=== PATIENT | female | born 1980 | race Caucasian/White ===

== ENCOUNTER 2022-06-18 10:09 | Outpatient (CLI) | payer SELFPAY ==
[2022-06-18 12:07] LABS: Basophils Percent Auto 0.4 % (0.2-1.2); Eosinophils Absolute Auto 0.1 K/mm3 (0-0.3); Eosinophils Percent Auto 1.2 % (0-4.4); Hematocrit 29.5 % (37.0-47.0); Hemoglobin 7.4 g/dL (12.0-15.0); Immature Granulocyte Absolute 0.04 K/mm3 (0.00-0.031); Immature Granulocyte Percent A 0.4 % (0-0.5); Lymphocytes Absolute Auto 1.92 K/mm3 (0.9-3.2); Lymphocytes Percent Auto 21.5 % (18.3-44.2); Mean Corpuscular HGB Conc 25.1 g/dl (32-36); Mean Corpuscular Hemoglobin 17.9 pg (26-34); Mean Corpuscular Volume 71.3 fl (80-100); Mean Platelet Volume 10.5 fl (7.4-10.4); Monocytes Absolute Auto 0.4 K/mm3 (0.1-0.6); Monocytes Percent Auto 4.8 % (2.6-8.5); Neutrophils Absolute Auto 6.4 K/mm3 (1.3-6.7); Neutrophils Percent Auto 71.7 % (45.5-73.1); Platelet Count Result 388 k/mm3 (150-375); Red Blood Count 4.14 M/mm3 (4.2-5.4); Red Cell Distribution Width 21.1 % (11.5-14.5); White Blood Count 8.9 K/mm3 (4.5-10.0)
[2022-06-18 12:20] LABS: Iron 15 ug/dL (37-170)
[2022-06-18 12:30] LABS: Percent Iron Saturation 3 % (20-50)
[2022-06-18 12:33] LABS: Anisocytosis 1+ (NORMAL); Hypochromasia 1+ (NORMAL); Poikilocytosis 1+ (NORMAL)
[2022-06-18 12:58] LABS: Ferritin 3.46 ng/mL (6.24-137)
== END 2022-06-18 10:10 | disposition home or self-care (01) ==
LOC: ANHGOSHLAB 10:10
PROVIDERS: PCP Emergency Medicine; Visit Provider Emergency Medicine
DX: D64.9 Anemia, unspecified (principal)
CPT/HCPCS: 36415; 82728; 83540; 83550; 84443; 85025

== ENCOUNTER 2022-06-21 08:18 | Outpatient (NON) | payer SELFPAY ==
[2022-06-21 20:47] LABS: IFOB Positive Control Positive; Immunochemical Fecal Occult Bl Negative (N)
== END 2022-06-21 08:19 | disposition home or self-care (01) ==
LOC: ANHGOSHLAB 08:19
PROVIDERS: PCP Emergency Medicine; Visit Provider Emergency Medicine
DX: D64.9 Anemia, unspecified (principal)
CPT/HCPCS: 82274

== ENCOUNTER → 2022-06-28 12:46 | Outpatient (CLI) | payer SELFPAY ==
--- NOTE | ~2022-06-28 | US_ITS ---
EXAMINATION: US transvaginal DATE: 06/28/2022 13:15 INDICATION: Excessive and frequent menstruation Comparison:No prior studies for comparison. TECHNIQUE: Multiple transabdominal and endovaginal sonographic images of the pelvis performed. FINDINGS: The uterus measures 8.5 x 5.1 x 8.2 cm. There are multiple uterine fibroids of varying size and echogenicity, largest measuring 6.3 x 5.4 x 5.4 cm. Fibroids obscure the endometrium. There are complicated nabothian cysts. The right ovary is unremarkable measuring 2.9 x 1.7 x 1.8 cm. Left ovary is not visualized. There is no free fluid in the pelvis. There are no abnormal masses seen on either side. IMPRESSION: 1. Multiple uterine fibroids, largest measuring up to 6.3 cm. Endometrium not clearly delineated for measurement. Reviewed, dictated and finalized at location B. IMPRESSION: 1. Multiple uterine fibroids, largest measuring up to 6.3 cm. Endometrium not c learly delineated for measurement.
== END ==
PROVIDERS: PCP Emergency Medicine; Visit Provider Emergency Medicine
DX: N92.0 Excessive and frequent menstruation with regular cycle (principal); D25.9 Leiomyoma of uterus, unspecified
CPT/HCPCS: 76830

== ENCOUNTER 2022-07-16 09:33 | Outpatient (CLI) | payer SELFPAY ==
[2022-07-16 21:52] LABS: Hemoglobin A1C 4.3 % (<5.7)
[2022-07-16 22:50] LABS: Alanine Aminotransferase 16 U/L (6-35); Albumin Level 4.5 g/dL (3.5-5.1); Alkaline Phosphatase 90 U/L (38-126); Anion Gap 11 mmol/L (8-16); Aspartate Amino Transferase 19 U/L (14-36); Bilirubin,Total 0.4 mg/dL (0.2-1.3); Blood Urea Nitrogen 10 mg/dL (7-17); Calcium 9.1 mg/dL (8.4-10.2); Carbon Dioxide 20 mmol/L (22-30); Chloride 105 mmol/L (98-107); Cholesterol 180 mg/dL (0-200); Estimated Glomerular Filt Rate > 60; Glucose 87 mg/dL (65-110); HDL Direct 88 mg/dL; Potassium 4.1 mmol/L (3.4-5.0); Sodium 136 mmol/L (137-145); Triglycerides 92 mg/dL (<150)
[2022-07-16 23:04] LABS: LDL Cholesterol Direct 68 mg/dL
== END 2022-07-16 09:34 | disposition home or self-care (01) ==
LOC: ANHGOSHLAB 09:40
PROVIDERS: PCP Emergency Medicine; Visit Provider Emergency Medicine
DX: E66.9 Obesity, unspecified (principal)
CPT/HCPCS: 36415; 80053; 80061; 83036

== ENCOUNTER → 2022-12-10 12:01 | Outpatient (CLI) | payer SELFPAY ==
--- NOTE | ~2022-12-10 | XR_ITS ---
EXAMINATION: XR lumbar spine 6V w bending DATE: 12/10/2022 12:31 INDICATION: Lumbago with sciatica TECHNIQUE: Anteroposterior, lateral in neutral, flexion and extension, and bilateral oblique views of the lumbar spine, and cone-down lateral view of the lumbosacral junction were obtained. COMPARISON: None. FINDINGS: Alignment is normal. Normal motion with extension with limited motion with flexion. No spondylolisthe sis or abnormal translatory motion. Vertebral body heights are normal. Mild disc height loss with mil d degenerative endplate changes at L3-L4. Remaining lumbar disc heights are normal. No pars interarti cularis defects. Multilevel to minimal to mild lumbar facet osteoarthritis. 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 Visualized lung bases are clear with no pleural effusions. IMPRESSION: 1. Mild lumbar spondylosis. Reviewed, dictated and finalized at location A. MACY DIRECTOR IMPRESSION: 1. Mild lumbar spondylosis.
== END ==
PROVIDERS: PCP Emergency Medicine; Visit Provider Emergency Medicine
DX: M54.40 Lumbago with sciatica, unspecified side (principal); M43.06 Spondylolysis, lumbar region
CPT/HCPCS: 72114